=== PATIENT | male | born 1965 | race African-American/Black ===

== ENCOUNTER 2019-05-31 18:27 | Emergency (ER) | payer SELFPAY ==
[2019-05-31 18:36] VITALS: BP 175/95; PULSE 87; RESP 16; TEMP 36.6; O2SAT 97
--- NOTE | 2019-05-31 21:39 | ED.DENTAL ---
HPI - Dental/Oral General Chief complaint: Dental/Oral Stated complaint: states has a bad tooth, hurts Time Seen by Provider: 05/31/19 21:39 Source: patient Mode of arrival: Ambulatory Limitations: no limitations History of Present Illness HPI Narrative: This is a 53-year-old male who comes in with complaint of a bad tooth on his left upper jaw. Patient states that the other day he was brushing his 2 when it broke off. He states that initially it did hurt and the following day started having pain he has not had swelling around the area and in the cheek. He has not had any fevers. He does not any swelling of the airway, tongue or back of the throat. PE. Patient has not had any vomiting. He states he is quite uncomfortable he has tried some ibuprofen [id number] with minimal improvement. Patient states he is otherwise healthy has a history of hypertension but does not take medication regularly for it. He denies any other medical issues or diabetes. He is visiting from [place] and working at [email or web address] for an indeterminate amount of time. Patient has had some mild dental issues but nothing like this in the past. He does not have a local dentist. He states he is allergic to penicillin and has anaphylaxis. Location: Tooth # Related Data Previous Rx's Medication Instructions Recorded clindamycin HCl 300 mg PO Q6H #40 cap 05/31/19 hydrocodone-acetaminophen [[place]] 1 tab PO Q6H PRN #10 tab 05/31/19 meloxicam 7.5 mg PO BID #14 tab 05/31/19 Allergies Allergy/AdvReac Type Severity Reaction Status Date / Time Penicillins Allergy Severe Anaphylaxis Verified 05/31/19 18:41 Review of Systems Review of Systems ROS Unobtainable: All systems reviewed & are unremarkable except as noted in HPI and below Patient History Social History Smoking Status: Current every day smoker Smoking Status: Current every day smoker alcohol intake frequency: a few times a month Substance Use Type: does not use Exam Narrative Exam Narrative: GEN: well nourished, well appearing male, alert and oriented x 3, patient appears to be in moderate distress. HEENT: Atraumatic, pupils are equal round reactive to light, extraocular movements are intact, nares are clear, TMs are clear with no fluid, there is no conjunctival pallor. Throat is clear without any exudates, erythema, tonsillar enlargement or uvular deviation, poor dentition in general, tooth 13. The majority is fractured off at the base of gum although there there is some still present. Tooth #14 is entirely missing. Patient has some mild swelling of the left cheek, none appreciated of the lower jaw, oropharynx or tongue. He has no stridor. No difficulty swallowing secretions. HEART: Regular rate and rhythm without murmur, clicks, rubs. LUNGS:Lungs clear to auscultation, no wheezes, rales, crackles, chest moves symmetrically ABD:bowel sounds normal, soft, non-tender, no guarding, rebound, rigidity, no masses noted, no hepatosplenomegaly MSCL: Non-tender, no muscle atrophy, muscles strength 5/5 upper and lower extremities, full range of motion, normal gait NEURO:CN 2-12 intact, sensation normal SKIN: No erythema or skin changes appreciated. Initial Vital Signs Initial Vital Signs: Vital Signs Temperature 97.8 F 05/31/19 18:36 Pulse Rate 87 05/31/19 18:36 Respiratory Rate 16 05/31/19 18:36 Blood Pressure 175/95 H 05/31/19 18:36 Pulse Oximetry 97 05/31/19 18:36 Course Orders Ordered: Discontinued Medications Hydrocodone Bitart/Acetaminophen (Vicodin 5/325 Prepack) 1 bottle MISC SEEINSTR ONE Stop: 05/31/19 21:54 Last Admin: 05/31/19 22:02 Dose: 1 bottle Documented by: NILESH Clindamycin HCl (Cleocin) 300 mg PO NOW ONE Stop: 05/31/19 21:54 Last Admin: 05/31/19 22:01 Dose: 300 mg Documented by: NILESH Ketorolac Tromethamine (Toradol) 30 mg IM NOW ONE Stop: 05/31/19 21:54 Last Admin: 05/31/19 22:02 Dose: 30 mg Documented by: NILESH Vital Signs Vital signs: Vital Signs - 8 hr 05/31/19 18:36 Temperature 97.8 F Pulse Rate 87 Respiratory Rate 16 Blood Pressure 175/95 H Pulse Oximetry 97 MDM - Dental/Oral MDM Narrative Medical decision making narrative: Discussed with patient plan to start on antibiotics no clear abscess is noted but he does have some cellulitis, was given a dose of Toradol here prescription for meloxicam and a prepack of [place] for pain control. Was given referral to dentist and discussed strict return precautions. Discharge Plan Departure Patient Disposition: Home Clinical Impression: Toothache Discharge Date/Time: 05/31/19 22:18 Instructions: Tooth Fracture Activity Restrictions/Additional Instructions: Follow-up with the dentist, he can call one of the local dentist or Dr. Ceja with [facility]. Call 1st thing in the morning. Take antibiotics until completely gone. You may use Orajel 4 times daily to the affected area. Take pain medication as prescribed, meloxicam you can take 1 tablet twice daily. Do not take this medication with ibuprofen. You may take it with the narcotic pain prescription. You may take narcotic pain medication 1 tablet every 6 hours as needed. Return to the ER for fevers greater 100.4 F, rapidly worsening swelling of the face, mouth, throat, tongue, stridor or high-pitched wheezing, persistent vomiting or other new or concerning symptoms. Prescriptions: New clindamycin HCl 300 mg capsule 300 mg PO Q6H Qty: 40 RF: 0 hydrocodone-acetaminophen [[place]] 5-325 mg tablet 1 tab PO Q6H PRN (Reason: pain) Qty: 10 RF: 0 meloxicam 7.5 mg tablet 7.5 mg PO BID Qty: 14 RF: 0 Referrals: Kb Ceja DMD [Physician] - Stand Alone Forms: Work Release Note
[2019-05-31 22:00] VITALS: BP 195/113; PULSE 66; RESP 16; O2SAT 99
[2019-05-31] MEDS: CLINDAMYCIN 150 MG CAPSULE 300 MG PO (22:01)
[2019-05-31] MEDS: KETOROLAC 60 MG/2 ML VIAL 30 MG IM (22:02)
[2019-05-31] MEDS: HYDROCODONE/ACET 5/325 PREPACK 1 BOTTLE MISC (22:02)
== END 2019-05-31 22:18 | disposition home or self-care (01) ==
PROVIDERS: Emergency Provider Emergency Medicine
DX: S02.5XXA Fracture of tooth (traumatic), initial encounter for closed fracture (principal); K08.199 Complete loss of teeth due to other specified cause, unspecified class
CPT/HCPCS: 96372; 99283; J1885

== ENCOUNTER 2019-06-30 17:44 | Emergency (ER) | payer SELFPAY ==
[2019-06-30 17:53] VITALS: BP 146/79; PULSE 88; RESP 16; O2SAT 97; BMI 34.0
[2019-06-30 18:09] LABS: Add Manual Diff / Slide Review NO; Basophils Absolute Auto 0 /uL (0-100); Basophils Percent Auto 0.8 % (0-2); Eosinophils Absolute Auto 200 /uL (0-450); Eosinophils Percent Auto 4.5 % (2-4); Hematocrit 43.3 % (41-53); Hemoglobin 14.4 g/dL (13.5-17.5); Lymphocytes Absolute Auto 1200 /uL (1100-4500); Lymphocytes Percent Auto 28.7 % (25-40); Mean Corpuscular HGB Conc 33.2 % (30-36); Mean Corpuscular Hemoglobin 29.6 PG (26-34); Mean Corpuscular Volume 89.2 fL (80-100); Monocytes Absolute Auto 600 /uL (0-900); Monocytes Percent Auto 13.6 % (3-14); Neutrophils Absolute Auto 2300 /uL (1500-7000); Neutrophils Percent Auto 52.4 % (50-75); Platelet Count 244 X10^3/uL (150-400); Red Blood Cell Count 4.85 X10^6/uL (4.5-5.9); Red Cell Distribution Width 13.1 % (11.6-14.8); White Blood Cell Count 4.3 X10^3/uL (4.5-11.0)
[2019-06-30 18:17] LABS: Prothrombin Time 11.3 SECONDS (10.1-12.7)
[2019-06-30 18:25] VITALS: PULSE 78
[2019-06-30 18:25] LABS: Ethanol (ETOH) 164 mg/dL
[2019-06-30 18:26] LABS: Alanine Aminotransferase 53 IU/L (<50); Albumin 4.5 g/dL (3.5-5.0); Albumin Globulin Ratio 1.3 (1.0-2.8); Alkaline Phosphatase 69 U/L (38-126); Aspartate Aminotransferase 64 IU/L (17-59); BUN Creatinine Ratio 10.9 (6-22); Bilirubin Total 0.7 mg/dL (0.2-1.3); Blood Urea Nitrogen 12 mg/dL (9-20); Calcium 9.4 mg/dL (8.4-10.2); Carbon Dioxide 21 mmol/L (22-32); Chloride 109 mmol/L (98-107); Estimated Glomerular Filt Rate > 60.0 mL/min (>60); Globulin 3.6 g/dL (1.7-4.1); Glucose 117 mg/dL (70-100); Potassium 4.4 mmol/L (3.4-5.1); Sodium 142 mmol/L (137-145); Total Protein 8.1 g/dL (6.3-8.2)
[2019-06-30 18:27] LABS: HEMOLYSIS 71 (0-50)
[2019-06-30 18:38] LABS: Troponin I < 0.012 ng/mL (0.01-0.034)
[2019-06-30 19:00] VITALS: BP 135/81; PULSE 77; RESP 20; O2SAT 97
[2019-06-30 19:12] LABS: UR Morphine/Opiate cutoff 300 Negative (Negative); Ur Creatinine Normal (Normal); Ur Specific Gravity Normal (Normal); Urine Amphetamines Negative (Negative); Urine Barbiturates Negative (Negative); Urine Benzodiazepines Negative (Negative); Urine Cocaine Negative (Negative); Urine MDMA Negative (Negative); Urine Methadone Negative (Negative); Urine Methamphetamines Negative (Negative); Urine Oxycodone Negative (Negative); Urine Phencyclidine Negative (Negative); Urine Tetrahydrocannabinol Negative (Negative); Urine Tricyclic Antidepressant Negative (Negative); Urine pH Normal (Normal)
--- NOTE | 2019-06-30 19:49 | ED.EXTPRO ---
HPI - Extremity Problem [facility] - Last Filed: 06/30/19 19:54> General Chief complaint: Extremity Problem,Nontraumatic Stated complaint: lightheaded, wants bp checked, blurred vision Time Seen by Provider: 06/30/19 17:51 Source: patient Mode of arrival: Ambulatory Limitations: no limitations History of Present Illness HPI Narrative: The patient is a 53-year-old male current smoker with history of hypertension who presents with a chief complaint of wanting his blood pressure checked, blurry vision at times, being lightheaded. He admits to drinking several beers today. He states that he used to be on medication for high blood pressure, but he stopped taking it because he did not like the side effects. He states he has had transient pins and needles in bilateral arms ongoing for at least a week. He states he has not had any water to drink today. Denies any fevers nausea vomiting or diarrhea. He denies any weakness. He denies any chest pain or shortness of breath. Related Data Previous Rx's Medication Instructions Recorded clindamycin HCl 300 mg PO Q6H #40 cap 05/31/19 hydrocodone-acetaminophen [[place]] 1 tab PO Q6H PRN #10 tab 05/31/19 meloxicam 7.5 mg PO BID #14 tab 05/31/19 Allergies Allergy/AdvReac Type Severity Reaction Status Date / Time Penicillins Allergy Severe Anaphylaxis Verified 05/31/19 18:41 Review of Systems <[facility] Last Filed: 06/30/19 19:54> Review of Systems Narrative: GENERAL: Denies chills, fatigue, malaise, fever, sweats. HEENT: See HPI RESPIRATORY: Denies dyspnea, cough, wheezing, hemoptysis, sputum. CARDIOVASCULAR: Denies chest pain, palpitations, orthopnea, edema, GASTROINTESTINAL: Denies nausea, vomiting, abdominal pain, diarrhea, constipation, melena. : Denies dysuria, frequency, incontinence, hematuria, urinary retention. MUSCULOSKELETAL: denies weakness, joint pain, or bony pain SKIN: Denies rash, skin lesions, or other NEUROLOGIC: See HPI PSYCHIATRIC: No concerning psychosocial issues. 12 point review of systems is negative except for those stated above Patient History [facility] - Last Filed: 06/30/19 19:54> Social History Smoking Status: Current every day smoker Smoking Status: Current every day smoker alcohol intake frequency: a few times a month Substance Use Type: does not use Exam <ARIAN Lenz - Last Filed: 06/30/19 19:54> Narrative Exam Narrative: GENERAL: This is a well-nourished, well-developed patient, in no acute distress HEAD: Atraumatic. Normocephalic. No temporal or scalp tenderness. EYES: Pupils equal round and reactive. Extraocular motions intact. No scleral icterus. No injection or drainage. ENT: Nose without bleeding, purulent drainage or septal hematoma. Throat without erythema, tonsillar hypertrophy or exudate. Uvula midline. Airway patent. NECK: Trachea midline. No JVD or lymphadenopathy. Supple, nontender, no meningeal signs. CARDIOVASCULAR: Regular rate and rhythm RESPIRATORY: Clear to auscultation. Breath sounds equal bilaterally. No wheezes, rales, or rhonchi. No cough. No increased respiratory effort no accessory muscle use. GASTROINTESTINAL: Abdomen soft, non-tender, nondistended. No hepato-splenomegaly, or palpable masses. No guarding. Active bowel sounds all 4 quadrants. EXTREMITIES: No clubbing, cyanosis, or edema. No joint tenderness, effusion, or edema noted. BACK: Nontender without deformity or crepitance. No flank tenderness. NEURO: AOx3. Stable gait. Sensation intact by sharp object testing all fingers bilateral forearms. No gross cranial nerve deficit. SKIN: No rash or erythema on visible skin Initial Vital Signs Initial Vital Signs: Vital Signs Pulse Rate 88 06/30/19 17:53 Respiratory Rate 16 06/30/19 17:53 Blood Pressure 146/79 H 06/30/19 17:53 Pulse Oximetry 97 06/30/19 17:53 <Get Alexander DO - Last Filed: 06/30/19 19:57> Initial Vital Signs Initial Vital Signs: Vital Signs Pulse Rate 88 06/30/19 17:53 Respiratory Rate 16 06/30/19 17:53 Blood Pressure 146/79 H 06/30/19 17:53 Pulse Oximetry 97 06/30/19 17:53 Course <ARIAN Lenz - Last Filed: 06/30/19 19:54> Orders Ordered: ED Orders 06/30/19 18:00 Complete Blood Count AUTO DIFF Stat Comprehensive Metabolic Panel Stat Ethanol (ETOH) Stat Prothrombin Time INR Stat Troponin I Stat 06/30/19 18:04 EKG-12 Lead Stat 06/30/19 18:54 Urine Drug Screen, Rapid Stat Vital Signs Vital signs: Vital Signs - 8 hr 06/30/19 17:53 06/30/19 18:25 06/30/19 19:00 Pulse Rate 88 77 Pulse Rate [Bilateral Radial] 78 Respiratory Rate 16 20 Blood Pressure 146/79 H Blood Pressure [Left Arm] 135/81 Pulse Oximetry 97 97 <Get Alexander DO - Last Filed: 06/30/19 19:57> Orders Ordered: ED Orders 06/30/19 18:00 Complete Blood Count AUTO DIFF Stat Comprehensive Metabolic Panel Stat Ethanol (ETOH) Stat Prothrombin Time INR Stat Troponin I Stat 06/30/19 18:04 EKG-12 Lead Stat 06/30/19 18:54 Urine Drug Screen, Rapid Stat Vital Signs Vital signs: Vital Signs - 8 hr 06/30/19 17:53 06/30/19 18:25 06/30/19 19:00 Pulse Rate 88 77 Pulse Rate [Bilateral Radial] 78 Respiratory Rate 16 20 Blood Pressure 146/79 H Blood Pressure [Left Arm] 135/81 Pulse Oximetry 97 97 MDM - Extremity (Nontraumatic) <KEDAR [facility] - Last Filed: 06/30/19 19:54> Lab Data Result diagrams: 06/30/19 18:00 06/30/19 18:00 Labs: Lab Results 06/30/19 06/30/19 06/30/19 Range/Units 18:00 18:00 18:00 WBC 4.3 L (4.5-11.0) X10^3/uL RBC 4.85 (4.5-5.9) X10^6/uL Hgb 14.4 (13.5-17.5) g/dL Hct 43.3 (41-53) % MCV 89.2 (80-100) fL MCH 29.6 (26-34) PG MCHC 33.2 (30-36) % RDW 13.1 (11.6-14.8) % Plt Count 244 (150-400) X10^3/uL Neut % (Auto) 52.4 (50-75) % Lymph % (Auto) 28.7 (25-40) % [place] % (Auto) 13.6 (3-14) % Eos % (Auto) 4.5 H (2-4) % Baso % (Auto) 0.8 (0-2) % Neut # (Auto) 2300 (9895-6173) /uL Lymph # (Auto) 1200 (0330-9605) /uL [place] # (Auto) 600 (0-900) /uL Eos # (Auto) 200 (0-450) /uL Baso # (Auto) 0 (0-100) /uL PT 11.3 (10.1-12.7) SECONDS INR 1.0 (0.9-1.3) Sodium 142 (137-145) mmol/L Potassium 4.4 (3.4-5.1) mmol/L Chloride 109 H (98-107) mmol/L Carbon Dioxide 21 L (22-32) mmol/L BUN 12 (9-20) mg/dL Creatinine 1.10 (0.66-1.25) mg/dL Estimated GFR > 60.0 (>60) mL/min BUN/Creatinine Ratio 10.9 (6-22) Glucose 117 H (70-100) mg/dL Calcium 9.4 (8.4-10.2) mg/dL Total Bilirubin 0.7 (0.2-1.3) mg/dL AST 64 H (17-59) IU/L ALT 53 H (<50) IU/L Alkaline Phosphatase 69 (38-126) U/L Troponin I < 0.012 (0.01-0.034) ng/mL Total Protein 8.1 (6.3-8.2) g/dL Albumin 4.5 (3.5-5.0) g/dL Globulin 3.6 (1.7-4.1) g/dL Albumin/Globulin Ratio 1.3 (1.0-2.8) U Opiates 300ng/mL cut (Negative) Ur Oxycodone Screen (Negative) Urine Methadone Screen (Negative) Ur Barbiturates Screen (Negative) U Tricyclic Antidepress (Negative) Ur Phencyclidine Scrn (Negative) Ur Amphetamines Screen (Negative) U Methamphetamines Scrn (Negative) Ur MDMA Scrn (Ecstasy) (Negative) U Benzodiazepines Scrn (Negative) Urine Cocaine Screen (Negative) U Marijuana (THC) Screen (Negative) Ethyl Alcohol ( - 10) mg/dL 06/30/19 06/30/19 Range/Units 18:00 18:54 WBC (4.5-11.0) X10^3/uL RBC (4.5-5.9) X10^6/uL Hgb (13.5-17.5) g/dL Hct (41-53) % MCV (80-100) fL MCH (26-34) PG MCHC (30-36) % RDW (11.6-14.8) % Plt Count (150-400) X10^3/uL Neut % (Auto) (50-75) % Lymph % (Auto) (25-40) % [place] % (Auto) (3-14) % Eos % (Auto) (2-4) % Baso % (Auto) (0-2) % Neut # (Auto) (2541-3323) /uL Lymph # (Auto) (9878-5773) /uL [place] # (Auto) (0-900) /uL Eos # (Auto) (0-450) /uL Baso # (Auto) (0-100) /uL PT (10.1-12.7) SECONDS INR (0.9-1.3) Sodium (137-145) mmol/L Potassium (3.4-5.1) mmol/L Chloride (98-107) mmol/L Carbon Dioxide (22-32) mmol/L BUN (9-20) mg/dL Creatinine (0.66-1.25) mg/dL Estimated GFR (>60) mL/min BUN/Creatinine Ratio (6-22) Glucose (70-100) mg/dL Calcium (8.4-10.2) mg/dL Total Bilirubin (0.2-1.3) mg/dL AST (17-59) IU/L ALT (<50) IU/L Alkaline Phosphatase (38-126) U/L Troponin I (0.01-0.034) ng/mL Total Protein (6.3-8.2) g/dL Albumin (3.5-5.0) g/dL Globulin (1.7-4.1) g/dL Albumin/Globulin Ratio (1.0-2.8) U Opiates 300ng/mL cut Negative (Negative) Ur Oxycodone Screen Negative (Negative) Urine Methadone Screen Negative (Negative) Ur Barbiturates Screen Negative (Negative) U Tricyclic Antidepress Negative (Negative) Ur Phencyclidine Scrn Negative (Negative) Ur Amphetamines Screen Negative (Negative) U Methamphetamines Scrn Negative (Negative) Ur MDMA Scrn (Ecstasy) Negative (Negative) U Benzodiazepines Scrn Negative (Negative) Urine Cocaine Screen Negative (Negative) U Marijuana (THC) Screen Negative (Negative) Ethyl Alcohol 164 H ( - 10) mg/dL MDM Narrative Medical decision making narrative: The patient is a 53-year-old male who presents with a chief complaint of blurry vision at times, not currently in the emergency department, wanting a blood pressure check, lightheadedness at times, numbness and tingling in bilateral arms at times. His sensation is intact by exam throughout his exam. Normal tones of in the emergency department with normal blood sugars. He felt much improved after a single L of fluid and requested to leave. He is intoxicated at this point with an elevated alcohol, though he is clinically sober GCS 15 and able to make his own decisions. The patient repeatedly declines further evaluation or fluids and request to leave. I discussed at length the importance of following up with primary care provider. Discussed coming back to emergency department for any acute concerns. Patient has no questions or concerns upon discharge and states understanding of return precautions as well as follow-up care. <Get Alexander, DO - Last Filed: 06/30/19 19:57> Lab Data Labs: Lab Results 06/30/19 06/30/19 06/30/19 Range/Units 18:00 18:00 18:00 WBC 4.3 L (4.5-11.0) X10^3/uL RBC 4.85 (4.5-5.9) X10^6/uL Hgb 14.4 (13.5-17.5) g/dL Hct 43.3 (41-53) % MCV 89.2 (80-100) fL MCH 29.6 (26-34) PG MCHC 33.2 (30-36) % RDW 13.1 (11.6-14.8) % Plt Count 244 (150-400) X10^3/uL Neut % (Auto) 52.4 (50-75) % Lymph % (Auto) 28.7 (25-40) % [place] % (Auto) 13.6 (3-14) % Eos % (Auto) 4.5 H (2-4) % Baso % (Auto) 0.8 (0-2) % Neut # (Auto) 2300 (6718-9695) /uL Lymph # (Auto) 1200 (4773-7952) /uL [place] # (Auto) 600 (0-900) /uL Eos # (Auto) 200 (0-450) /uL Baso # (Auto) 0 (0-100) /uL PT 11.3 (10.1-12.7) SECONDS INR 1.0 (0.9-1.3) Sodium 142 (137-145) mmol/L Potassium 4.4 (3.4-5.1) mmol/L Chloride 109 H (98-107) mmol/L Carbon Dioxide 21 L (22-32) mmol/L BUN 12 (9-20) mg/dL Creatinine 1.10 (0.66-1.25) mg/dL Estimated GFR > 60.0 (>60) mL/min BUN/Creatinine Ratio 10.9 (6-22) Glucose 117 H (70-100) mg/dL Calcium 9.4 (8.4-10.2) mg/dL Total Bilirubin 0.7 (0.2-1.3) mg/dL AST 64 H (17-59) IU/L ALT 53 H (<50) IU/L Alkaline Phosphatase 69 (38-126) U/L Troponin I < 0.012 (0.01-0.034) ng/mL Total Protein 8.1 (6.3-8.2) g/dL Albumin 4.5 (3.5-5.0) g/dL Globulin 3.6 (1.7-4.1) g/dL Albumin/Globulin Ratio 1.3 (1.0-2.8) U Opiates 300ng/mL cut (Negative) Ur Oxycodone Screen (Negative) Urine Methadone Screen (Negative) Ur Barbiturates Screen (Negative) U Tricyclic Antidepress (Negative) Ur Phencyclidine Scrn (Negative) Ur Amphetamines Screen (Negative) U Methamphetamines Scrn (Negative) Ur MDMA Scrn (Ecstasy) (Negative) U Benzodiazepines Scrn (Negative) Urine Cocaine Screen (Negative) U Marijuana (THC) Screen (Negative) Ethyl Alcohol ( - 10) mg/dL 06/30/19 06/30/19 Range/Units 18:00 18:54 WBC (4.5-11.0) X10^3/uL RBC (4.5-5.9) X10^6/uL Hgb (13.5-17.5) g/dL Hct (41-53) % MCV (80-100) fL MCH (26-34) PG MCHC (30-36) % RDW (11.6-14.8) % Plt Count (150-400) X10^3/uL Neut % (Auto) (50-75) % Lymph % (Auto) (25-40) % [place] % (Auto) (3-14) % Eos % (Auto) (2-4) % Baso % (Auto) (0-2) % Neut # (Auto) (0892-9941) /uL Lymph # (Auto) (7334-5667) /uL [place] # (Auto) (0-900) /uL Eos # (Auto) (0-450) /uL Baso # (Auto) (0-100) /uL PT (10.1-12.7) SECONDS INR (0.9-1.3) Sodium (137-145) mmol/L Potassium (3.4-5.1) mmol/L Chloride (98-107) mmol/L Carbon Dioxide (22-32) mmol/L BUN (9-20) mg/dL Creatinine (0.66-1.25) mg/dL Estimated GFR (>60) mL/min BUN/Creatinine Ratio (6-22) Glucose (70-100) mg/dL Calcium (8.4-10.2) mg/dL Total Bilirubin (0.2-1.3) mg/dL AST (17-59) IU/L ALT (<50) IU/L Alkaline Phosphatase (38-126) U/L Troponin I (0.01-0.034) ng/mL Total Protein (6.3-8.2) g/dL Albumin (3.5-5.0) g/dL Globulin (1.7-4.1) g/dL Albumin/Globulin Ratio (1.0-2.8) U Opiates 300ng/mL cut Negative (Negative) Ur Oxycodone Screen Negative (Negative) Urine Methadone Screen Negative (Negative) Ur Barbiturates Screen Negative (Negative) U Tricyclic Antidepress Negative (Negative) Ur Phencyclidine Scrn Negative (Negative) Ur Amphetamines Screen Negative (Negative) U Methamphetamines Scrn Negative (Negative) Ur MDMA Scrn (Ecstasy) Negative (Negative) U Benzodiazepines Scrn Negative (Negative) Urine Cocaine Screen Negative (Negative) U Marijuana (THC) Screen Negative (Negative) Ethyl Alcohol 164 H ( - 10) mg/dL Discharge Plan Departure Patient Disposition: Home Clinical Impression: Dehydration Alcohol intoxication Qualifiers: Complication of substance-induced condition: uncomplicated Qualified Code(s): F10.920 - Alcohol use, unspecified with intoxication, uncomplicated Instructions: Alcohol and Stress: There are Safer Ways to [place], Alcohol Use Disorder (Alternative Therapy), DI for Dehydration -- Adult, DI for Numbness/tingling Activity Restrictions/Additional Instructions: Please follow-up with primary care provider. I have given you contact information [facility] human resources operations specialist. I believe that you are dehydrated as responded well to fluids, your numbness and tingling went away any feel improved You have chosen to leave the emergency department go home and drink fluids. Please come back to emergency department for any Acute concerns please be aware that you are legally intoxicated at this point time. You are not allowed to drive home. Please remember that drinking alcohol can make you dehydrated Prescriptions: No Action clindamycin HCl 300 mg capsule 300 mg PO Q6H Qty: 40 RF: 0 hydrocodone-acetaminophen [[place]] 5-325 mg tablet 1 tab PO Q6H PRN (Reason: pain) Qty: 10 RF: 0 meloxicam 7.5 mg tablet 7.5 mg PO BID Qty: 14 RF: 0 Referrals: [facility] [Outside]
[2019-06-30 20:07] VITALS: BP 135/73; PULSE 77; RESP 15; O2SAT 95
== END 2019-06-30 20:08 | disposition home or self-care (01) ==
PROVIDERS: Emergency Provider Nurse Practitioner Family
DX: E86.0 Dehydration (principal); F10.920 Alcohol use, unspecified with intoxication, uncomplicated; R07.9 Chest pain, unspecified; H53.8 Other visual disturbances
CPT/HCPCS: 80053; 80305; 80320; 84484; 85025; 85610; 93005; 99283; 99284